=== PATIENT | male | born 1990 | race Caucasian/White ===

== ENCOUNTER 2019-10-20 20:58 | Emergency (ER) | payer SELFPAY ==
[~2019-10-20] VITALS: Ht 172.7 cm; Wt 77.1 kg
[~2019-10-20 20:58] MED LIST: CLARITIN10 MG PO; IMODIUM2 MG PO; LIDEX0.05% T; MEDROL DOSEPAK4 MG PO; MOTRIN600 MG PO; MOTRIN800 MG PO; PHENERGAN25 M1 PO; PROVENTIL0.09 MG/AC IH; TOBRADEX 0.1%-0.5 ML OPH; ZITHROMAX Z PA250 MG PO
[2019-10-20 21:46] LABS: BASO % 0.3 % (0.0-1.0); EOS # 0.1 10*3/uL (0.0-0.4); EOS % 1.3 % (1.0-4.0); HEMATOCRIT 44.8 % (42.0-52.0); MEAN CELL VOLUME 87.8 fl (80.0-94.0); MEAN CORPUSCULAR HGB 31.4 pg (27.0-31.0); MEAN CORPUSCULAR HGB CONC 35.7 g/dl (33.0-37.0); MEAN PLATELET VOLUME 9.3 fl (9.6-12.3); MONO # 0.4 10*3/uL (0.1-1.0); MONO % 5.6 % (3.0-9.0); NEUT # 5.4 10*3/uL (2.3-7.9); NEUT % 78.4 % (47.0-73.0); PLATELET COUNT AUTOMATED 214 10*3/uL (130-400); RED CELL DISTRI WIDTH 12.2 % (0-14.5); WHITE BLOOD COUNT 6.9 10*3/uL (4.8-10.8)
[2019-10-20 22:00] LABS: ALBUMIN 4.1 gm/dl (3.1-4.5); ALKALINE PHOSPHATASE 70 U/L (45-117); BUN 15 mg/dl (7-24); CHLORIDE 106 mmol/L (98-107); CREATININE 1.34 mg/dL (0.70-1.30); LIPASE 46 U/L (73-393); POTASSIUM 3.1 mmol/L (3.5-5.1); SGOT/AST 15 IU/L (3-35); SGPT/ALT 21 U/L (12-78); SODIUM 138 mmol/L (136-145); TOTAL PROTEIN 7.4 gm/dL (6.4-8.2)
[2019-10-20 22:38] VITALS: BP 128/78
[2019-10-21 00:08] LABS: BILIRUBIN NEGATIVE (NEGATIVE); BLOOD NEGATIVE (NEGATIVE); CLARITY CLEAR (CLEAR); COLOR YELLOW (YELLOW); GLUCOSE NEGATIVE (NEGATIVE); KETONE TRACE (NEGATIVE); LEUKO ESTERASE NEGATIVE (NEGATIVE); NITRITE NEGATIVE (NEGATIVE); SPECIFIC GRAVITY 1.015 (1.005-1.030)
[2019-10-21 00:16] LABS: URINE AMPHETAMINES > 1000 (1000ng/ml); URINE BARBITURATES < 200 (200ng/ml); URINE BENZODIAZEPINES < 200 (200ng/ml); URINE CANNABINOIDS (THC) < 50 (50ng/ml); URINE COCAINE < 300 (300ng/ml); URINE METHADONE < 300 (300ng/ml); URINE OPIATES < 300 (300ng/ml)
[2019-10-21 00:21] LABS: BACTERIA 1+; EPITHELIAL CELLS 0-2; MUCOUS 1+; RBC 0-2 rbc/hpf (0-2); WBC 0-2 wbc/hpf (0-5)
[2019-10-21 00:34] LABS: URINE PHENCYCLIDINE < 25 (25ng/ml)
== END 2019-10-21 00:52 | disposition home or self-care (01) ==
LOC: ED 20:58
PROVIDERS: Nurse Practitioner Family
DX: F15.10 Other stimulant abuse, uncomplicated (principal); R10.12 Left upper quadrant pain; R50.9 Fever, unspecified; R25.2 Cramp and spasm